=== PATIENT | male | born 1950 | race Caucasian/White ===

== ENCOUNTER 2020-01-22 13:51 | Outpatient (RCR) | payer MEDICARE, OTHER ==
[~2020-01-22 13:51] MED LIST: ALEVE220 M1 PO; ASPIRIN325 MG PO; BYSTOLIC10 MG PO; DOXYCYCLINE HY100 MG PO; GABAPENTIN100 MG PO; NEXIUM PO; NIFEDIPINE PO; SINGULAIR10 MG PO; nexium
== END 2020-01-23 ==
LOC: OT 13:51
PROVIDERS: ATTEND Specialist
DX: M77.12 Lateral epicondylitis, left elbow (principal); M19.042 Primary osteoarthritis, left hand; M19.041 Primary osteoarthritis, right hand